=== PATIENT | female | born 1985 | race Caucasian/White ===

== ENCOUNTER 2016-12-31 11:47 | Emergency (ER) | payer OTHER ==
[~2016-12-31] VITALS: Ht 182.9 cm; Wt 116.1 kg
[2016-12-31] MEDS ORDERED: cefTRIAXone SOD 1,000 MG VL IM ONE (12:30)
[2016-12-31] MEDS ORDERED: methylPREDNISolone SOD SUCC 125 MG/2 ML VL IM ONE (12:30)
[2016-12-31 12:50] VITALS: BP 130/76
== END 2016-12-31 13:01 | disposition home or self-care (01) ==
LOC: ER 11:47
DX: H05.011 Cellulitis of right orbit (principal)
CPT/HCPCS: 96372; 99284; J0696; J2930